=== PATIENT | female | born 1990 | race Asian ===

== ENCOUNTER 2023-04-10 08:50 | Day surgery (SDC) | payer BC ==
[2023-04-09 16:23] VITALS: BMI 26.4
[2023-04-10] MEDS ORDERED: Midazolam HCl 2 mg/2 ml Vial ONE (12:51)
[2023-04-10] MEDS ORDERED: PROPOFOL 40 ML ONE (12:51)
== END 2023-04-10 14:10 | disposition home or self-care (01) ==
LOC: CSHSDC 08:50
PROVIDERS: ATTEND Internal Medicine Gastroenterology
PROC: 0DB98ZX Excision of Duodenum, Via Natural or Artificial Opening Endoscopic, Diagnostic (ICD-10-PCS; principal; 2023-04-10)
DX: R10.9 Unspecified abdominal pain (principal); R11.2 Nausea with vomiting, unspecified
CPT/HCPCS: 88305; J2250; J2704